=== PATIENT | male | born 1955 | race Caucasian/White ===

== ENCOUNTER 2018-09-02 20:59 | Emergency (ER) | payer MEDICARE, MEDICAID ==
[~2018-09-02] VITALS: Ht 193 cm; Wt 121.5 kg
[~2018-09-02 20:59] MED LIST: ALPR1TAB2 PO; DIVA500T2 PO; HYDR25SU32 RC; ZIPR20CA2 PO
[2018-09-02 21:05] VITALS: BP 161/102
[2018-09-02 22:23] LABS: COLOR,URINE YELLOW (Yellow); GLUCOSE, URINE NEGATIVE (Neg); KETONES,URINE NEGATIVE (Neg); LEUKOCYTE ESTERASE ,URINE MODERATE (Neg); NITRITES, URINE NEGATIVE (Neg); OCCULT BLOOD,URINE LARGE (Neg); PROTEIN,URINE TRACE mg/dl (Neg); UROBILINOGEN,URINE 0.2 E.U/dL (0.2-1.0)
[2018-09-02 22:26] LABS: CLARITY,URINE SLIGHTLY CLOUDY (Clear); UA COLLECTION TYPE CLN CATCH MIDSTREAM
[2018-09-02 22:46] LABS: WBC,URINE 20-30 /HPF (0-4)
[2018-09-02 22:47] LABS: BACTERIA,URINE FEW /HPF (Neg)
[2018-09-02 22:48] LABS: MUCUS STRANDS NONE SEEN /LPF (Neg); RED BLOOD CELL CASTS,URINE 0-3 /LPF (NEGATIVE); SQUAMOUS EPITHELIAL CELL,UR NONE SEEN /LPF (FEW); WBC CLUMPS,URINE FEW /HPF (NEGATIVE)
== END 2018-09-02 23:46 | disposition home or self-care (01) ==
LOC: ER 21:00
DX: S50.312A Abrasion of left elbow, initial encounter (principal); S50.311A Abrasion of right elbow, initial encounter; S60.419A Abrasion of unspecified finger, initial encounter; K46.9 Unspecified abdominal hernia without obstruction or gangrene; R07.81 Pleurodynia; M25.562 Pain in left knee; G89.29 Other chronic pain; F15.90 Other stimulant use, unspecified, uncomplicated; Z56.0 Unemployment, unspecified; Z59.0 Homelessness; Y04.8XXA Assault by other bodily force, initial encounter; X58.XXXA Exposure to other specified factors, initial encounter; Y93.89 Activity, other specified; Y92.89 Other specified places as the place of occurrence of the external cause; Y99.8 Other external cause status
CPT/HCPCS: 71045; 73564; 81001; 87088; 99283